=== PATIENT | female | born 1955 | race Caucasian/White ===

== ENCOUNTER 2020-10-05 11:21 | Emergency (ER) | payer OTHER ==
[~2020-10-05] VITALS: Ht 165.1 cm; Wt 90.7 kg
[2020-10-05] MEDS ORDERED: AUGMENTIN 875-1 EACH PO (11:56)
[2020-10-05 12:40] VITALS: BP 157/64
== END 2020-10-05 12:41 | disposition home or self-care (01) ==
LOC: M.ERS 11:21
DX: S80.272A Other superficial bite of left knee, initial encounter (principal); Z98.890 Other specified postprocedural states; W54.0XXA Bitten by dog, initial encounter; Y93.89 Activity, other specified; Y92.89 Other specified places as the place of occurrence of the external cause; Y99.0 Civilian activity done for income or pay